=== PATIENT | male | born 1965 | race Caucasian/White ===

== ENCOUNTER → 2018-10-27 | Outpatient (CLI) | payer BC, OTHER | LOC: CAT 14:57 | DX: R51 Headache (principal); H53.8 Other visual disturbances ==

== ENCOUNTER 2020-05-27 23:54 | Inpatient (IN) | payer OTHER ==
[~2020-05-27] VITALS: Ht 182.9 cm; Wt 97.5 kg
--- NOTE | ~2020-05-27 | HC ---
[facility] [place] [address] CONSULTATION Name: HAYES DUDLEY Room #: 201-P ADM IN M.R.#: [id number] Admission: 05/28/20 Attend Phys: Stuart Eller Discharge: Date of : 67 Report #: [id number] THIS REPORT FOR: cc: Shadi Velasquez MD, Neal A. MD Thesing, John A. MD ~ CC: Stuart Velasquez MD DATE OF SERVICE: 05/28/2020 INPATIENT CONSULTATION REASON FOR CONSULTATION: The patient is a 54-year-old male with longstanding history of type 1 diabetes and gastroparesis with nausea, vomiting, abdominal pain. HISTORY OF PRESENT ILLNESS: This patient reports that he has had problems with gastroparesis for many years. He reports he has been admitted over 90 times to a hospital for symptoms of nausea, vomiting, abdominal pain. He notes that he may do well for a period of time and then he would have multiple episodes. He most recently has been on metoclopramide 10 mg 3 times daily for more than a year. He also takes scopolamine patch. I asked specifically about both of these medicines and he says at times they help and other times they do not seem to help all that much. More recently, he had done well for about 10 months and then he has had a relapse with recurrent symptomatology of nonbloody emesis, nausea and abdominal pain. He has had several Emergency Room visits to [facility] in the past several months. He was actually admitted there about 3 days ago, was discharged yesterday and returned to the Emergency Room within 4 hours. In recent months, I am told he has had 3 CAT scans of abdomen and pelvis at [facility], all of which have been negative. The last was about 2-1/2 weeks ago. He did have a colonoscopy and upper endoscopy by Dr. Menjivar about 2 years ago and he reported those were normal. He also had seen Dr. 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 He does have the name of a finance business manager in [facility] that he plans to see. He once again presented to [facility], was transferred to [facility]. He has not had hematemesis. He does not have any dysphagia. He is not having diarrhea or rectal bleeding. PAST MEDICAL HISTORY: In addition to diabetes and gastroparesis, he has hypothyroidism. He reports no other significant health problems. [address] [address] CONSULTATION Name: HAYES DUDLEY Room #: 201-P [facility] IN M.R.#: [id number] Admission: 05/28/20 Attend Phys: Stuart Eller Discharge: Date of : 67 Report #: [id number] PAST SURGICAL HISTORY: Cholecystectomy, left knee surgery and right inner ear surgery. ALLERGIES: No known drug allergies. MEDICATIONS: Usual home medicines, NovoLog insulin 100 units subcutaneous before meals and at bedtime, Lantus 100 units subcutaneous as directed, levothyroxine 150 mcg daily, lorazepam 1 mg as needed for anxiety, metoclopramide 10 mg 3 times daily, Remeron 30 mg as needed for sleep, ondansetron 4 mg every 8 hours as needed for nausea, Compazine 10 mg 3 times a day as needed for nausea and vomiting, scopolamine patch as directed. FAMILY HISTORY: No family history of colon cancer or ulcer disease. SOCIAL HISTORY: He has never smoked. He has never consumed alcohol. He is . REVIEW OF SYSTEMS: GENERAL: No change in weight, fever or chills. CENTRAL NERVOUS SYSTEM: No focal weakness, numbness, loss of consciousness, seizures or strokes. ENT: No change in vision, hearing, or sores in the mouth. He has never had diabetic retinopathy. PULMONARY: No cough, pneumonia or tuberculosis. CARDIOVASCULAR: No chest pain, chest tightness or palpitations. GASTROINTESTINAL: Nausea and vomiting recently. No hematemesis. No dysphagia. He has had a recent upper endoscopy, does not recall specifics or the date. GENITOURINARY: Without dysuria, pyuria, kidney stones, kidney tract infections. MUSCULOSKELETAL: No arthralgias or myalgias. SKIN: Without rashes. PSYCHIATRIC: Anxiety. ENDOCRINE: Diabetes and thyroid disease. HEMATOLOGIC: No bleeding, bruising or malignancies. PHYSICAL EXAMINATION: GENERAL: The patient is a well-developed, well-nourished, pleasant male who is awake, alert and oriented, no acute distress. He looks quite comfortable. VITAL SIGNS: Blood pressure 129/86, pulse of 83. HEENT: Anicteric. Pupils equal and round. Oropharynx clear. NECK: Supple. CHEST: Clear. HEART: Regular rate and rhythm, normal S1, normal S2. ABDOMEN: Normal bowel sounds, soft, nontender, without hepatosplenomegaly or masses. RECTAL: Not done. [facility] [address] [place] [address] CONSULTATION Name: DUDLEY,HAYES SHAMEKA Room #: 201-P [facility] IN M.R.#: [id number] Admission: 05/28/20 Attend Phys: Stuart Layton Rafita Discharge: Date of : 67 Report #: [id number] EXTREMITIES: Without cyanosis, clubbing, or edema. NEUROLOGIC: Oriented to person, place and time. Moves all 4 extremities well. LABORATORY STUDIES: Urine shows 1+ ketones, electrolytes are normal. Glucose 253, calcium 7.8. TSH elevated at 2.44. Hemoglobin A1c is pending. No imaging for review. ASSESSMENT: 1. Nausea and vomiting, recurrent and chronic, most likely secondary to gastroparesis. 2. Longstanding diabetes, insulin-dependent. COMMENT: I had a lengthy discussion with the patient. He reports he is feeling better this afternoon and would like to eat. We discussed his use of metoclopramide. He has used it for more than a year and has had no neurologic side effects or symptoms from the metoclopramide. I discussed the potential of tardive dyskinesia and Parkinson-like symptoms, which potentially could be permanent, which may persist even after the metoclopramide has been withdrawn. In addition, he reports he probably spends about 30 days per year in the hospital. However, interestingly, he has had a 10-month span where he did very well. He believes that stress has caused him to have problems recently. We briefly discussed the role of gastric pacemakers. In view of the fact he has done well over the past 10 months, he may not necessarily be a candidate, but certainly if he has more problems in the future that may be an option. RECOMMENDATIONS: 1. Cautiously continue metoclopramide at this point in time and observe for potential adverse drug events related to medication. 2. We will cautiously start a diet, fiber restricted. 3. Continue pantoprazole. 4. Continue ondansetron and Compazine as needed. 5. Continue scopolamine patch. 6. No plans for endoscopic intervention at this time unless his symptoms should worsen or become protracted. By: [id number] Eduardo Prince MD /nt
[2020-05-28] VITALS (7 sets, daily range): BP systolic 115–191; BP diastolic 75–121
[2020-05-28] MEDS ORDERED: METOCLOPRAMIDE10 MG PO (01:10)
[2020-05-28] MEDS ORDERED: NOVOLOG FL100 UNIT/M SUBQ (01:11)
[2020-05-28] MEDS ORDERED: LANTUS SOL100 UNIT/1 SUBQ (01:11)
[2020-05-28] MEDS ORDERED: LORAZEPAM 1 MG T1 MG PO (01:12)
[2020-05-28] MEDS ORDERED: COMPAZINE10 MG PO (01:13)
[2020-05-28] MEDS ORDERED: ONDANSETRON HCL4 M2 PO (01:14)
[2020-05-28] MEDS ORDERED: REMERON 30 MG T30 M1 PO (01:14)
[2020-05-28] MEDS ORDERED: LEVOTHYROXINE150 MCG PO (01:15)
[2020-05-28] MEDS ORDERED: TRANSDERM-SCOP1 EACH TRANSDERM (01:35)
--- NOTE | 2020-05-28 01:59 | NUR ---
PATIENT A DIRECT ADMIT FROM [facility]. PATIENT ARRIVED TO [facility] VIA EMS. ASSUMED CARE OF PATIENT AT APPROXIMATELY 0100. ADMISSION COMPLETED PATIENT CONTINUES TO C/O NAUSEA AND ABDOMINAL PAIN (05/01). ADMINISTERED PRN MORPHINE AND ZOFRAN ORDERED. PATIENT CURRENTLY RESTING WITH EYES CLOSED. WILL CONTINUE TO MONITOR.
[2020-05-28 03:51] LABS: CALCIUM 8.1 mg/dL (8.5-10.1); CREATININE 1.1 mg/dL (0.7-1.3)
[2020-05-28 03:55] LABS: POTASSIUM 2.9 mmol/L (3.5-5.1)
[2020-05-28 09:08] LABS: URINE BILIRUBIN NEGATIVE (Negative); URINE BLOOD NEGATIVE (Negative); URINE CLARITY CLEAR; URINE COLOR YELLOW; URINE GLUCOSE-RANDOM* 3+ (Negative); URINE KETONES 1+ (Negative); URINE LEUKOCYTES NEGATIVE (Negative); URINE NITRITE NEGATIVE (Negative); URINE PROTEIN (DIPSTICK) NEGATIVE (Negative); URINE UROBILINOGEN 0.2 E.U./dl (0.2-1.0)
[2020-05-28 11:13] LABS: CALCIUM 7.8 mg/dL (8.5-10.1); CREATININE 1.1 mg/dL (0.7-1.3); POTASSIUM 3.5 mmol/L (3.5-5.1)
--- NOTE | 2020-05-28 18:08 | NUR ---
ASSUMED CARE AT SHIFT CHANGE, ALERT AND ORIENTED X4. BP ELEVATED AT 4PM OTHER GUERRERO VS BEEN STABLE. NO NAUSEA AND VOMITTING REPORTED, AND PATIENT TOLERATED DIET WELL. K+ REPLACED AND WILL CONTINUE WITH CURRENT POC.
[2020-05-29 02:05] LABS: GLYCOHEMOGLOBIN (HGB A1C) 7.9 % (4.8-5.6)
--- NOTE | 2020-05-29 02:53 | NUR ---
ASSUMED CARE OF PATIENT AT 1900. PATIENT HAD NO C/O NAUSEA AT INITIAL ASSESSMENT. PATIENT DID RATE ABDOMINAL PAIN AT 8/10 AND REQUESTED PRN PAIN MEDICATION AT HS. PATIENT HAD NO OTHER C/O PAIN THROUGH NOC. PATIENT REFUSED HEPARIN AND STATES THAT HE AMBULATES FREQUENTLY AROUND UNIT, WHICH WAS OBSERVED. PATIENT APPEARS TO BE PROGRESSING TOWARDS HIS GOALS.
[2020-05-29 04:12] LABS: CALCIUM 8.3 mg/dL (8.5-10.1); MAGNESIUM 1.6 mg/dL (1.8-2.4); POTASSIUM 3.3 mmol/L (3.5-5.1)
[2020-05-29 04:29] LABS: HEMATOCRIT 36.8 % (42.0-52.0); MCHC 32.6 g/dL (28.0-37.0); MCV 85.8 fL (80.0-100.0); RBC 4.28 mil/uL (4.50-6.00); RDW 13.5 % (10.5-14.5); WBC 6.1 thou/uL (4.0-11.0)
[2020-05-29 04:50] VITALS: BP 134/92
[2020-05-29 07:15] VITALS: BP 128/87
--- NOTE | 2020-05-29 12:05 | NUR ---
ASSUMED CARE AT SHIFT CHANGE, ALERT AND ORIENTED X4, VSS AND STABLE. S/B DR GARCIA, DISCHARGE AND MEDICATION INSTRUCTIONS GIVEN TO PATIENT.
[2020-05-29 12:27] VITALS: BP 128/87
== END 2020-05-29 12:37 | disposition home or self-care (01) | DRG 641 ==
LOC: 2N 23:54
PROVIDERS: Hospitalist; Nurse Practitioner Family; ADMIT Hospitalist; ATTEND Hospitalist
DX: E86.0 Dehydration (principal); E11.43 Type 2 diabetes mellitus with diabetic autonomic (poly)neuropathy; K31.84 Gastroparesis; E87.6 Hypokalemia; R10.9 Unspecified abdominal pain; E78.5 Hyperlipidemia, unspecified; I10 Essential (primary) hypertension; E03.9 Hypothyroidism, unspecified; Z79.4 Long term (current) use of insulin; Z90.49 Acquired absence of other specified parts of digestive tract; Z79.899 Other long term (current) drug therapy
CPT/HCPCS: 10081

== ENCOUNTER 2020-06-03 08:05 | Emergency (ER) | payer OTHER ==
[~2020-06-03] VITALS: Ht 182.9 cm; Wt 99.8 kg
[~2020-06-03 08:05] MED LIST: COMPAZINE10 MG PO; LANTUS SOL100 UNIT/1 SUBQ; LEVOTHYROXINE150 MCG PO; LORAZEPAM 1 MG T1 MG PO; METOCLOPRAMIDE10 MG PO; NOVOLOG FL100 UNIT/M SUBQ; ONDANSETRON HCL4 M2 PO; REMERON 30 MG T30 M1 PO; TRANSDERM-SCOP1 EACH TRANSDERM
[2020-06-03 10:00] LABS: CALCIUM 9.9 mg/dL (8.5-10.1); CREATININE 1.3 mg/dL (0.7-1.3); MAGNESIUM 1.5 mg/dL (1.8-2.4); POTASSIUM 3.7 mmol/L (3.5-5.1)
[2020-06-03 10:07] LABS: LIPASE 37 U/L (73-393); TROPONIN-I <0.06 ng/mL (<0.06)
[2020-06-03 10:20] LABS: ABSOLUTE NEUTROPHILS 10.3 thou/uL (1.4-8.2); BASOPHILS 0.3 % (0.0-2.0); HEMOGLOBIN 12.9 gm/dL (14.0-18.0); MCH 28.5 pg (26.0-34.0); MCHC 33.9 g/dL (28.0-37.0); MCV 84.1 fL (80.0-100.0); MONOCYTES 2.4 % (1.0-8.0); PLATELET COUNT 336 thou/uL (150-400); POLYS 92.3 % (36.0-66.0); RBC 4.52 mil/uL (4.50-6.00); RDW 13.9 % (10.5-14.5); WBC 11.2 thou/uL (4.0-11.0)
--- NOTE | 2020-06-03 10:46 | EKG ---
[facility] [place] [address] ELECTROCARDIOGRAM REPORT Name: HAYES DUDLEY Room #: [facility]..#: [id number] Admission: 06/03/20 Attend Phys: Discharge: Date of : 67 Report #: [id number] THIS REPORT FOR: cc: Shadi Velasquez MD, Neal A. MD Couchonnal, Luis F. 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
[2020-06-03 13:04] VITALS: BP 151/88
== END 2020-06-03 13:05 | disposition home or self-care (01) ==
LOC: ER 08:05
PROVIDERS: Emergency Medicine
DX: K31.84 Gastroparesis (principal); E83.42 Hypomagnesemia; E11.9 Type 2 diabetes mellitus without complications; I10 Essential (primary) hypertension; E78.5 Hyperlipidemia, unspecified; Z90.49 Acquired absence of other specified parts of digestive tract; Z79.4 Long term (current) use of insulin; Z79.899 Other long term (current) drug therapy

== ENCOUNTER 2020-10-22 14:48 | Inpatient (IN) | payer OTHER ==
[~2020-10-22] VITALS: Ht 180.3 cm; Wt 88.5 kg
[2020-10-22 14:52] VITALS: BP 222/127
[2020-10-22 16:45] LABS: ABSOLUTE NEUTROPHILS 16.8 thou/uL (1.4-8.2); BASOPHILS 0.4 % (0.0-2.0); EOSINOPHILS 0.1 % (0.0-3.0); HEMATOCRIT 42.6 % (42.0-52.0); LYMPHOCYTES 6.5 % (24.0-44.0); MCH 27.5 pg (26.0-34.0); MCHC 32.7 g/dL (28.0-37.0); MCV 83.9 fL (80.0-100.0); MONOCYTES 4.5 % (1.0-8.0); PLATELET COUNT 408 thou/uL (150-400); POLYS 88.5 % (36.0-66.0); RBC 5.08 mil/uL (4.50-6.00); RDW 13.8 % (10.5-14.5)
--- NOTE | 2020-10-22 16:57 | NUR ---
VAT CONSULTED FOR PICC LINE IN ER, PT'S LABS,MEDS,HX ORDER AND CONSENT VERIFIED. ZEE BRACHIAL WAS WIDELY PATENT WITH USG, 4FR SL PICC TRIMMED TO 42CM UNABLE TO GET PICC TO DROP GOING UP RIJ, HEARING FLUSH IN EAR AND NO BR. LINE PULLED BACK 22CM WITH BRISK BR. LABELED MIDLINE. RELEASED FOR IMMEDIATE USE TO ANA LUISA BEAVER MIDLINE. DISCUSSED DIFFICULTIES WITH Lyndon BENNETT. LAB WORK DRAWN. PT TOLERATED FAIR, VERY NAUSEATED THROUGHOUT PROCEDURE.
[2020-10-22 17:08] LABS: ANION GAP 19 mmol/L (7-16); BUN 14 mg/dL (7-18); CALCIUM 9.7 mg/dL (8.5-10.1); CHLORIDE 100 mmol/L (98-107); CO2 20 mmol/L (21-32); CREATININE 1.4 mg/dL (0.7-1.3); GLUCOSE 300 mg/dL (74-106); POTASSIUM 3.5 mmol/L (3.5-5.1); SODIUM 139 mmol/L (136-145)
[2020-10-22 17:13] LABS: ALBUMIN 4.1 g/dL (3.4-5.0); LIPASE 40 U/L (73-393); SGOT 33 U/L (15-37); SGPT 46 U/L (16-63); TOTAL BILIRUBIN 0.5 mg/dL (0.2-1.0); TOTAL PROTEIN 8.5 g/dL (6.4-8.2); TROPONIN-I <0.06 ng/mL (<0.06)
[2020-10-22 17:36] LABS: URINE BILIRUBIN NEGATIVE (Negative); URINE BLOOD NEGATIVE (Negative); URINE CLARITY CLEAR; URINE COLOR YELLOW; URINE GLUCOSE-RANDOM* 3+ (Negative); URINE KETONES 2+ (Negative); URINE LEUKOCYTES-REFLEX NEGATIVE (Negative); URINE NITRITE-REFLEX NEGATIVE (Negative); URINE PROTEIN (DIPSTICK) TRACE (Negative); URINE UROBILINOGEN 0.2 E.U./dl (0.2-1.0)
[2020-10-22 18:46] LABS: AMP/METHAMP Negative (Negative); BARBITURATES Negative (Negative); BENZODIAZEPINES Negative (Negative); COCAINE Negative (Negative); METHADONE Negative (Negative); OPIATES Negative (Negative); PCP Negative (Negative)
[2020-10-22 19:28] VITALS: BP 200/94
[2020-10-22 20:06] VITALS: BP 178/93
[2020-10-22 20:26] VITALS: BP 175/85
--- NOTE | 2020-10-23 00:10 | NUR ---
PT EXPRESSING CONTINUED PAIN AND NAUSEA. EMAR REVIEWED, NO CURRENT ORDERS. ATTENDING DR. JIN NOTIFIED, ORDERS RECEIVED FOR PRN IV 25MCG FENTANYL Q2HR FOR PAIN 6-10, PRN IV 4MG ZOFRAN Q4HR FOR N/V, PRN RECTAL 25MG PHENERGAN SUPPOSITORY Q4HR FOR N/V, PRN IV 5MG HALDOL Q2HR FOR N/V, SCHEDULED TRANSDERMAL SCOPALAMINE PATCH Q3DAYS FOR N/V, AND 0.9% NS AT 100ML/HR. ORDERS ENTERED, COORDINATED WITH PHARMACY, EMAR TO BE UPDATED.
--- NOTE | 2020-10-23 04:07 | NUR ---
PT ARRIVED ON UNIT FROM ER AT 2030. ADMITTED WITH INTRACTABLE VOMITING. DR JIN CONTACTED FOR ORDERS--RECEIVED. FENTANYL PROVIDING PAIN RELIEF. ZOFRAN NAUSEA RELIEF. PT AMBULATING TO BATHROOM INDEPENDENTLY. SLEEPING INTERMITTENTLY. CALL LIGHT WITHIN REACH. FREQUENT OBSERVATION.
[2020-10-23 04:17] VITALS: BP 161/103
--- NOTE | 2020-10-23 07:45 | EKG ---
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 : 1965 Requested By: Jordyn Cook Order Number: [id number] MD: Cyril Barahona Measurements Intervals [place] Rate: 88 P: 48 MN: 134 QRS: 30 QRSD: 103 T: 56 QT: 399 QTc: 483 Interpretive Statements Sinus rhythm Borderline prolonged QT interval Compared to ECG 06/03/2020 09:03:37 Sinus tachycardia no longer present Electronically Signed On 10-23-2020 7:45:23 ESTIMATING MANAGER by Cyril Barahona [email or web address] <ELECTRONICALLY SIGNED> By: Cyril Barahona MD, [facility] 10/23/20 0745 1501 1501 Cyril Barahona MD, FACC /EPI
[2020-10-23 07:47] VITALS: BP 148/92
--- NOTE | 2020-10-23 11:30 | NUR ---
assumed care at 0700. pt is a&o x4. pt complains of nausea and vomitting. in the am, pt skin is warm without running a temperature. pt complains of pain as well and was given hydromorphone. dr. thrasher was paged this morning regarding lactic acid being a critical value. Also, dr. thrasher was paged when bsg was taken this afternoon with a bsg greater than [address] thrasher will order more insulin for patient. currently waiting for orders from dr. thrasher. eddie continue to monitor pt. fall precaution. call light within reach. vss.
--- NOTE | 2020-10-23 14:30 | NUR ---
Chart reviewed and case discussed with the care team. Pt has been up ad lobito in his room and walking laps on the unit this morning. He is A&ox4 and independent, working and driving prior to admission. He lives with his Sydnie and he is from [place]. He has a hx of DM and Gastroparesis. His PCP is Dr. Velasquez. He has commercial health insurance on file for f/u care and scripts at dc. No cm interventions indicated at this time. Will remain available should dc needs arise.
[2020-10-23 15:20] VITALS: BP 161/83
[2020-10-23 16:44] LABS: URINE BILIRUBIN NEGATIVE (Negative); URINE BLOOD NEGATIVE (Negative); URINE CLARITY CLEAR; URINE COLOR YELLOW; URINE GLUCOSE-RANDOM* 3+ (Negative); URINE KETONES 2+ (Negative); URINE LEUKOCYTES NEGATIVE (Negative); URINE NITRITE NEGATIVE (Negative); URINE PROTEIN (DIPSTICK) NEGATIVE (Negative); URINE UROBILINOGEN 0.2 E.U./dl (0.2-1.0)
[2020-10-23 18:55] VITALS: BP 178/95
--- NOTE | 2020-10-23 20:17 | NUR ---
ASSUMED PT CARE AT AROUND 1915 HRS. PT OBSERVED SLEEPING. NO S/SX OF DISTRESS. HE IS 99% ON ROOM AIR. VOIDS PER URINAL DENIES ANY ABDOMINAL PAIN OR NAUSEA AT THIS TIME. AFEBRILE.DENIES HEADACHE. BS OF 319-WILL TREAT.REFUSES SCDS. UP AD MAGGY IN ROOM AND HALLWAYS.CONTINUES ON IV FLUIDS. WILL CONTINUE WITH POC TILL EOS.
[2020-10-24 04:00] VITALS: BP 174/106
[2020-10-24 05:22] LABS: HEMATOCRIT 33.5 % (42.0-52.0); MCH 27.6 pg (26.0-34.0); MCHC 32.5 g/dL (28.0-37.0); MCV 85.2 fL (80.0-100.0); RBC 3.94 mil/uL (4.50-6.00); WBC 18.8 thou/uL (4.0-11.0)
[2020-10-24 05:25] LABS: HEMOGLOBIN 10.9 gm/dL (14.0-18.0)
[2020-10-24 08:14] VITALS: BP 147/87
--- NOTE | 2020-10-24 10:30 | NUR ---
ASSUMED CARE AT 0700. PT IS A&O X 4. PT STATES THAT HE IS FEELING MUCH BETTER. BSG IS REDUCING FROM CRITICAL VALUE. PT DENIE SOA, AND CONFUSION. AMLOPIDINE WAS GIVEN TO PT PT STATES THE THIS MED HELPS WITH BP. PT STILL WANTS TO BE ON CLEAR LIQUIDS. PT HAS NOT VOMITTED. PT FEELS SLIGHT NAUSEA BUT CAN TOLERATE. PATCH IS APPLIED TO LEFT EAR. IV ON MIDLINE IS INTACT AND SHOWS NO SIGNS OF REDNESS OR SWELLING. PT WALKS AROUND THE NURSING STATION WITH MASK IT HELPS WITH HIS ABD PAIN. PT COMPLAINS OF SLIGHT PAIN AND WAS GIVEN PAIN MEDICATION BEFORE SHIFT CHANGE PER NIGHT NURSE. WILL CONTINUE TO MONITOR.
[2020-10-24 16:57] VITALS: BP 142/86
[2020-10-24 20:25] VITALS: BP 173/104
--- NOTE | 2020-10-25 02:47 | NUR ---
PT REPORTS FEELING BETTER. HE LOOKS BETTER. ON CLR LIQUIDS. GIVEN PAINMEDS IV X 1 SO FAR. OBSERVED WALKING AROUND THE HALLWAYS SEVERAL TIMES DURING THE NIGHT.AFEBRILE.
[2020-10-25 03:15] VITALS: BP 129/81
[2020-10-25] MEDS ORDERED: NORVASC5 MG PO (06:12)
[2020-10-25 07:10] VITALS: BP 126/86
[2020-10-25 08:25] LABS: HEMATOCRIT 28.8 % (42.0-52.0); HEMOGLOBIN 9.6 gm/dL (14.0-18.0); MCH 28.2 pg (26.0-34.0); MCHC 33.4 g/dL (28.0-37.0); MCV 84.5 fL (80.0-100.0); RBC 3.41 mil/uL (4.50-6.00); RDW 13.6 % (10.5-14.5); WBC 10.6 thou/uL (4.0-11.0)
[2020-10-25 08:40] LABS: ALBUMIN 2.9 g/dL (3.4-5.0); CALCIUM 8.1 mg/dL (8.5-10.1); POTASSIUM 3.1 mmol/L (3.5-5.1); TOTAL BILIRUBIN 0.6 mg/dL (0.2-1.0); TOTAL PROTEIN 6.1 g/dL (6.4-8.2)
[2020-10-25 12:11] VITALS: BP 126/86
--- NOTE | 2020-10-25 12:58 | NUR ---
Assumed pt care thiss am, VS stable, pain managed with medications. No nausea or vomiting note, DC instructions and prescriptions given. IV removed, pressure placed for 15 minutes no bleeding noted. POC followed with no signs or verbalizations of distress noted. Pt is now dc.
== END 2020-10-25 13:03 | disposition home or self-care (01) | DRG 871 ==
LOC: ER 14:48 → EROBS 19:00 → 4S 19:00
PROVIDERS: Nurse Practitioner; Physician Assistant; ADMIT Family Medicine; ATTEND Family Medicine
PROC: B54MZZA Ultrasonography of Right Upper Extremity Veins, Guidance (ICD-10-PCS; principal; 2020-10-22)
PROC: 05H933Z Insertion of Infusion Device into Right Brachial Vein, Percutaneous Approach (ICD-10-PCS; principal; 2020-10-22)
DX: A41.9 Sepsis, unspecified organism (principal); N17.0 Acute kidney failure with tubular necrosis; E11.43 Type 2 diabetes mellitus with diabetic autonomic (poly)neuropathy; K31.84 Gastroparesis; I10 Essential (primary) hypertension; E03.9 Hypothyroidism, unspecified; D64.9 Anemia, unspecified; F41.9 Anxiety disorder, unspecified; E78.5 Hyperlipidemia, unspecified; Z79.4 Long term (current) use of insulin; Z79.899 Other long term (current) drug therapy; Z90.49 Acquired absence of other specified parts of digestive tract; Z28.21 Immunization not carried out because of patient refusal
CPT/HCPCS: 10195; 27000

== ENCOUNTER 2020-10-26 09:18 | Inpatient (IN) | payer OTHER ==
[~2020-10-26] VITALS: Ht 182.9 cm; Wt 99.8 kg
[~2020-10-26 09:18] MED LIST changes: +NORVASC5 MG PO
[2020-10-26 09:20] VITALS: BP 202/107
[2020-10-26 10:08] LABS: BASOPHILS 0.3 % (0.0-2.0); EOSINOPHILS 0.1 % (0.0-3.0); HEMATOCRIT 33.6 % (42.0-52.0); LYMPHOCYTES 6.6 % (24.0-44.0); MCH 27.4 pg (26.0-34.0); MCHC 32.8 g/dL (28.0-37.0); MCV 83.5 fL (80.0-100.0); MONOCYTES 4.1 % (1.0-8.0); PLATELET COUNT 309 thou/uL (150-400); POLYS 88.9 % (36.0-66.0); RBC 4.02 mil/uL (4.50-6.00); RDW 13.2 % (10.5-14.5); WBC 11.3 thou/uL (4.0-11.0)
[2020-10-26 10:15] LABS: CALCIUM 8.6 mg/dL (8.5-10.1); CREATININE 1.1 mg/dL (0.7-1.3)
[2020-10-26 13:53] VITALS: BP 205/101
[2020-10-26 14:10] VITALS: BP 185/99
--- NOTE | 2020-10-26 14:39 | NUR ---
PATIENT ARRIVED AT 14:35 FROM ER. VS TAKEN SEE COMPUTER PATIENT TO BE CLEAR LIQUIDS DIET. WILL ADMIT TO ROOM 442.
[2020-10-26 20:47] VITALS: BP 154/91
--- NOTE | 2020-10-26 20:48 | NUR ---
PATIENT ARRIVED FROM ER AT 1435, VS 98.7 18 91 140/87 O2 SAT =94%RA HEIGHT 6"0 WEIGHT 220. PT ALERT X4 , WAS GIVEN IV PAIN MEDS AND n7V MED AND ATIVAN ON SHIFT, NO SKIN ISSUES. PATIENT WALKS ALL AROUND UNIT STATES HELPS WITH ABD PAIN. DR JIN CALLED AND HE STATED WOULD PUT IN ORDERS PATIENT WAS DCD 10/24/20 BLOOD SUGARS CHECKED INSULIN PER ORDERS. FLUIDS ORDERED.
--- NOTE | 2020-10-27 02:06 | NUR ---
PT WAS OBSERVED WALKING AROUND IN THE UNIT AT SHIFT CHANGE.PT C/O PAIN AND NAUSEA,MANGED WITH MED.PT CONT ON IVF ORDERED.PT ABLE TO MAKE HIS NEEDS KNOWN.CALL LIGHT WITHIN REACH.
[2020-10-27 05:00] VITALS: BP 143/92
[2020-10-27 05:48] LABS: ALBUMIN 3.2 g/dL (3.4-5.0); CALCIUM 8.1 mg/dL (8.5-10.1); CREATININE 1.1 mg/dL (0.7-1.3); POTASSIUM 3.4 mmol/L (3.5-5.1); TOTAL BILIRUBIN 0.8 mg/dL (0.2-1.0)
[2020-10-27 07:25] VITALS: BP 153/92
--- NOTE | 2020-10-27 09:18 | NUR ---
PT CARE ASSUMED AT 0700. A&Ox4. PT UP AT MAGGY IN ROOM AND HALLWAY. SHOWERED INDEPENDENT. PER DR. JIN PT IS TO TAKE ATIVAN OVER DILAUDED OR NAUSEA MEDICATION TO TREAT THE UNDERLYING ANXIETY. ACHS WITH MODERATE SCALE. PT REFUSED THE 10 UNITS AND ASKED TO ONLY TAKE 8 UNITS IN FEAR OF BOTTOMING OUT BEING ON CLEAR LIQUIDS. PT NOT COMPLAINING OF NAUSEA BUT STATES THAT THE ATIVAN IS NOT WORKING. IV PATENT WITH NO REDNESS OR EDEMA, FLUIDS INFUSING. CALL LIGHT IN REACH. WILL CONTINUE TO MONITOR.
--- NOTE | 2020-10-27 10:41 | NUR ---
RD consult for pt with gastroparesis. Recently discharged 10/25, then readmit on 10/26. Pt states has battled gastroparesis for over 10yrs, has flareups at times. Eats healthy choices and aware of the guidelines. Tolerated clear liquids this am, no emesis. Wants to try diet advance-addressed this with RN. Wts stable between 220-225 lb. Low nutrition risk
--- NOTE | 2020-10-27 12:47 | NUR ---
cm completed the initial assessment, pt A&Ox4. pt up at lobito walking the halls. pt on ivf. pt stated he rtrn to hospital d/t uncontrolled px. pt stated he tries to manage chronic illness "by taking my meds and watching what i eat." pt arrived during assessment, she had no add'l questions or concerns. pt is active and independent. pt works/drives. pt has 0 dmes. pt has no hx w/hh or snf. there are no anticipated cm needs.
[2020-10-27 16:00] VITALS: BP 172/110
[2020-10-27 21:17] VITALS: BP 124/78
--- NOTE | 2020-10-28 07:50 | NUR ---
PT HAD EMESIS THIS SHIFT.ONE AT THE START OF SHIFT AND ONE EARLY THIS MORNING.PT HAS HAD BENADRYL PER HIS REQUEST ONCE THIS SHIFT.PT WAS OBSERVED WALKING AROUND IN THE UNIT.PT ABLE TO MAKE HIS NEEDS KNOWN.REPORT TO AM NURSE.
[2020-10-28 08:33] VITALS: BP 131/98
[2020-10-28 13:02] VITALS: BP 131/74
--- NOTE | 2020-10-28 13:20 | NUR ---
PT CARE ASSUMED AT 0700. A&Ox4. PT UP AT MAGGY INDEPENDENTLY ON THE FLOOR. IV PATENT WITH NO REDNESS OR EDEMA, FLUIDS INFUSING. NO SIGNS OF N/V. PAIN UNDER CONTROL WITH NO NEED FOR PAIN MEDICATION. PT DISCHARGE IF TOLERATING LUNCH. LUNCH WAS TOLERATED WITH NO N/V. PT DISCHARGED WITH AT 1325. IV REMOVED. NO FURTHER QUESTIONS FROM PT. PAPERS SIGNED.
== END 2020-10-28 13:31 | disposition home or self-care (01) | DRG 74 ==
LOC: ER 09:18 → EROBS 13:49 → 4S 13:49
PROVIDERS: Emergency Medicine; ADMIT Family Medicine; ATTEND Family Medicine
DX: E11.43 Type 2 diabetes mellitus with diabetic autonomic (poly)neuropathy (principal); K31.84 Gastroparesis; E78.5 Hyperlipidemia, unspecified; I10 Essential (primary) hypertension; G89.29 Other chronic pain; Z90.49 Acquired absence of other specified parts of digestive tract; Z79.4 Long term (current) use of insulin; Z79.899 Other long term (current) drug therapy; Z28.21 Immunization not carried out because of patient refusal
CPT/HCPCS: 10195